=== PATIENT | female | born 2000 | race African-American/Black ===

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

== ENCOUNTER 2023-10-01 00:30 | Emergency (ER) | payer SELFPAY ==
[2023-10-01 01:07] LABS: Hematocrit 30.8 % (36.0-47.0); Hemoglobin 9.5 g/dL (12.0-16.0); Mean Corpuscular HGB CONC 30.8 g/dL (32.0-36.0); Mean Corpuscular Hemoglobin 22.8 pg (27.0-31.0); Mean Platelet Volume 10.2 fL (7.4-10.4); Platelet Count 322 10x3/uL (130-400); RBC Distribution Width 17.9 % (11.5-14.5); Red Blood Cell (RBC) Count 4.16 mill/uL (4.20-5.40)
[2023-10-01 01:16] LABS: ALT (SGPT) 10 U/L (8-55); AST (SGOT) 15 U/L (5-34); Albumin 3.9 g/dL (3.5-5.0); Alkaline Phosphatase 58 U/L (40-110); Anion Gap 12 mmol/L (10-20); BUN (Urea Nitrogen) 7 mg/dL (7.0-18.7); Bilirubin, Total 0.6 mg/dL (0.2-1.2); Calc. Creatinine Clearance 0 mL/min (70-130); Calcium 9.2 mg/dL (7.8-10.44); Carbon Dioxide 22 mmol/L (22-29); Chloride 107 mmol/L (98-107); Estimated GFR 128; Globulin 3.1 g/dL (2.4-3.5); Glucose 89 mg/dL (70-105); Lipase 15 U/L (8-78); Potassium 3.6 mmol/L (3.5-5.1); Sodium 137 mmol/L (136-145)
[2023-10-01 01:19] LABS: Bacteria/HPF 1+ HPF (None Seen); Bilirubin Negative (Negative); Blood, Urine Negative (Negative); CAUTI Indications for Culture Pregnancy; Clarity Turbid (Clear); Glucose, Urine (Dipstick) Normal (Negative); Ketone, Urine 10 mg/dL (Negative); Leukocyte 500 Leu/uL (Negative); Nitrite 2+ (Negative); Protein, Urine (Dipstick) 30 mg/dL (Neg-Trace); RBC/HPF 0-3 HPF (0-3); Specific Gravity, Urine 1.026 (1.002-1.036); Urobilinogen 3 mg/dL (Less than 2); WBC/HPF 21-50 HPF (0-3)
[2023-10-01 01:22] LABS: Urine Culture Reflex Yes Yes
[2023-10-01 01:37] LABS: Anisocytosis SLIGHT = 6-15 cells HPF (0-5); Elliptocytes SLIGHT = 2-5 cells HPF (0-1); Macrocytosis SLIGHT = 6-15 cells HPF (0-5); Ovalocytes SLIGHT = 2-5 cells HPF (0-1); Platelet Adequacy Comment Platelets Normal; Polychromasia SLIGHT = 2-3 cells HPF (0-2)
[2023-10-01] MEDS ORDERED: cefTRIAXone (ROCEPHIN) 1 GM VIAL ONE (01:45)
[2023-10-01] MEDS ORDERED: Sodium Chloride 0.9% 100 ML ONE (01:45)
[2023-10-01 02:16] LABS: #Basophils 0.03 10x3/uL (0.0-0.2); %Basophils 0.4 % (0.0-1.0); %Eosinophils 3.7 % (0.0-10.0); %Lymphocytes 31.3 % (21.0-51.0); %Monocytes 7.7 % (0.0-10.0); %Neutrophils 56.6 % (42.0-75.0)
== END 2023-10-01 03:38 | disposition home or self-care (01) ==
LOC: ERS 00:30
DX: O20.0 Threatened abortion (principal); O23.41 Unspecified infection of urinary tract in pregnancy, first trimester; N39.0 Urinary tract infection, site not specified; Z3A.01 Less than 8 weeks gestation of pregnancy
CPT/HCPCS: 36415; 76856; 80053; 81001; 83690; 84702; 85025; 86900; 86901; 87077; 87086; 87186; J0696